=== PATIENT | female | born 1935 | race Caucasian/White ===

== ENCOUNTER 2018-03-18 22:48 | Emergency (ER) | payer MEDICARE ==
[~2018-03-18] VITALS: Ht 160 cm; Wt 100.0 kg
[~2018-03-18 22:48] MED LIST: ALD25T PO; ALIS150T; HYDR100T27 PO; HYDR50TA3 PO; METO50TA16 PO
[2018-03-18] MEDS ORDERED: LORazepam 2 mg/ml vial IV ONE (23:25)
[2018-03-18] MEDS ORDERED: ketorolac trometh. 30mg/ml inj. IV ONE (23:30)
[2018-03-19] MEDS ORDERED: fentaNYL/PF 50MCG/1 ML 2ML syringe IV ONE (01:25)
[2018-03-19] MEDS: labetalol 20mg/4ml (5mg/ml) syringe IV PRN ×2 (01:31→01:36)
[2018-03-19] MEDS ORDERED: hydrALAZINE 20mg/ml inj. IV ONE (02:05)
[2018-03-19] MEDS ORDERED: proCHLORperazine 10 MG/2 ml inj IV PRN (02:05)
[2018-03-19] MEDS ORDERED: metoclopramide 5 mg/ml inj IV ONE (02:05)
[2018-03-19] MEDS ORDERED: CYCL-1 PO (02:26)
[2018-03-19] MEDS ORDERED: METO-292 PO (02:26)
[2018-03-19 02:53] VITALS: BP 161/60
== END 2018-03-19 02:55 | disposition home or self-care (01) ==
LOC: ER 22:48
DX: R51 Headache (principal); I10 Essential (primary) hypertension; G89.29 Other chronic pain; Z90.49 Acquired absence of other specified parts of digestive tract; Z98.890 Other specified postprocedural states; Z85.9 Personal history of malignant neoplasm, unspecified; Z88.8 Allergy status to other drugs, medicaments and biological substances; Z79.899 Other long term (current) drug therapy
CPT/HCPCS: 70450; 96374; 96375; 99284; J0360; J1885; J2060; J2765; J3010; J0780; J3490

== ENCOUNTER 2018-05-05 16:23 | Inpatient (IN) | payer MEDICARE ==
[~2018-05-05] VITALS: Ht 175.3 cm; Wt 101.0 kg
[~2018-05-05 16:23] MED LIST changes: +CYCL-1 PO; +METO-292 PO
[2018-05-05] MEDS ORDERED: normal saline 1000ML IV soln IVB ONE (16:40)
[2018-05-05 17:10] LABS: BASOPHILS % (AUTO) 0.3 % (0-1); EOSINOPHILS # (AUTO) 0.1 X10'3 (0-0.9); EOSINOPHILS % (AUTO) 1.1 % (0-6); HEMATOCRIT 33.1 % (35.0-45.0); HEMOGLOBIN 11.1 g/dl (12.0-16.0); LYMPHOCYTES % (AUTO) 15.3 % (21-51); MEAN CORPUSCULAR HEMOGLOBIN 30.8 PG (27.0-31.0); MEAN CORPUSCULAR HGB CONC 33.5 % (33.0-36.5); MEAN CORPUSCULAR VOLUME 91.8 FL (78-98); MEAN PLATELET VOLUME 8.9 FL (7.4-10.4); MONOCYTES # (AUTO) 1.1 X10'3 (0-0.9); MONOCYTES % (AUTO) 8.2 % (2-12); NEUTROPHILS # (AUTO) 9.8 X10'3 (1.8-7.7); NEUTROPHILS % (AUTO) 75.1 % (42-75); PLATELET COUNT 163 X10'3 (140-440); WHITE BLOOD COUNT 13.1 X10'3 (4.5-11.0)
[2018-05-05 17:25] LABS: ALANINE AMINOTRANSFERASE 27 U/L (12-78); ALBUMIN 3.1 G/DL (3.4-5.0); ALBUMIN/GLOBULIN RATIO 1.1 (1.1-1.5); ALKALINE PHOSPHATASE 55 IU/L (46-116); ANION GAP 10 (8-16); ASPARTATE AMINO TRANSFERASE 138 U/L (10-37); BILIRUBIN,TOTAL 2.1 MG/DL (0.1-1.0); BLOOD UREA NITROGEN 25 MG/DL (7-18); BUN/CREATININE RATIO 18.8 (6.6-38.0); CALCIUM 7.9 MG/DL (8.5-10.1); CHLORIDE 101 MMOL/L (99-107); CREATININE 1.33 MG/DL (0.40-0.90); GLUCOSE 112 MG/DL (70-104); POTASSIUM 3.1 MMOL/L (3.5-5.1); SODIUM 134 MMOL/L (135-145); TOTAL CARBON DIOXIDE 22.8 MMOL/L (24-32); eGFR 38 ML/MIN
[2018-05-05 17:30] LABS: D-DIMER 10.07 MG/L FEU (0-0.50); INR 1.1 INR; PROTHROMBIN TIME 10.9 SECONDS (9.0-12.0)
[2018-05-05 18:52] LABS: CLARITY,URINE CLOUDY (Clear); COLOR,URINE YELLOW (Yellow); GLUCOSE, URINE NEGATIVE (Neg); KETONES,URINE TRACE mg/dl (Neg); LEUKOCYTE ESTERASE ,URINE NEGATIVE (Neg); NITRITES, URINE NEGATIVE (Neg); OCCULT BLOOD,URINE LARGE (Neg); PH,URINE 5.5 (4.8-8.0); PROTEIN,URINE 100 mg/dl (Neg)
[2018-05-05 18:59] LABS: UA COLLECTION TYPE STRAIGHT CATH
[2018-05-05 19:05] LABS: WBC,URINE NONE SEEN /HPF (0-4)
[2018-05-05 19:06] LABS: AMORPHOUS URATES 4+; BACTERIA,URINE FEW /HPF (Neg); MUCUS STRANDS NONE SEEN /LPF (Neg); SQUAMOUS EPITHELIAL CELL,UR NONE SEEN /LPF (FEW)
[2018-05-05 19:07] LABS: FINE GRANULAR CAST 0-3 /LPF (NEGATIVE)
[2018-05-05] MEDS ORDERED: acetaminophen 325mg tablet PO PRN ×2 (20:35)
[2018-05-05] MEDS ORDERED: potassium Cl 20 mEq SR tablet PO PRN (20:35)
[2018-05-05] MEDS ORDERED: magnesium 4gm in 100ml NS 100 ML IV PRN (20:35)
[2018-05-05] MEDS: K and/or MAG REPLACEMENT MC SCH (20:35)
[2018-05-05] MEDS ORDERED: mag hydrox/Alum hydrox/simeth 30ml oral suspension PO PRN (20:35)
[2018-05-05] MEDS ORDERED: potassium Cl 40MEQ/NS 500ml 500 ML IV PRN ×2 (20:35)
[2018-05-05] MEDS ORDERED: ondansetron/PF 4mg/2ml inj IV PRN (20:35)
[2018-05-05] MEDS ORDERED: HYDROcodone/acetaminophen 5mg/325mg tablet PO PRN (20:35)
[2018-05-05] MEDS ORDERED: magnesium Cl slow-release 64mg tablet PO PRN (20:35)
[2018-05-05] MEDS ORDERED: magnesium hydroxide 30ml (MOM) UD suspension PO PRN (20:35)
[2018-05-05] MEDS ORDERED: magnesium 1gm/100ml D5W IVPB 100 ML IV PRN (20:35)
[2018-05-05] MEDS ORDERED: iohexol 350MG/ML 100ml bottle IV ONE (20:43)
[2018-05-05] MEDS ORDERED: methylPREDNISolone sod succ 125mg/2ml vial IV ONE (20:55)
[2018-05-05] MEDS ORDERED: diphenhydrAMINE 50 mg/ml inj IV ONE (20:55)
[2018-05-05] MEDS: levoFLOXACIN-Levaquin 500mg/D5 100 ML IV SCH (21:47)
[2018-05-05] MEDS: normal saline 1000ml 1,000 ML IV SCH (21:47)
[2018-05-05 21:52] VITALS: BP 142/43
[2018-05-06] VITALS (7 sets, daily range): BP systolic 107–176; BP diastolic 38–56
[2018-05-06 06:26] LABS: BASOPHILS % (AUTO) 0.1 % (0-1); EOSINOPHILS # (AUTO) 0.1 X10'3 (0-0.9); HEMOGLOBIN 11.6 g/dl (12.0-16.0); LYMPHOCYTES # (AUTO) 0.7 X10'3 (1.1-4.8); LYMPHOCYTES % (AUTO) 8.4 % (21-51); MEAN CORPUSCULAR HEMOGLOBIN 31.3 PG (27.0-31.0); MEAN PLATELET VOLUME 9.6 FL (7.4-10.4); MONOCYTES # (AUTO) 0.1 X10'3 (0-0.9); MONOCYTES % (AUTO) 1.6 % (2-12); NEUTROPHILS # (AUTO) 7.5 X10'3 (1.8-7.7); NEUTROPHILS % (AUTO) 88.9 % (42-75); PLATELET COUNT 143 X10'3 (140-440); RED BLOOD COUNT 3.69 X10'6 (4.20-5.60); RED CELL DISTRIBUTION WIDTH 13.6 % (11.5-14.5); WHITE BLOOD COUNT 8.4 X10'3 (4.5-11.0)
[2018-05-06 06:43] LABS: ALBUMIN 2.9 G/DL (3.4-5.0); ANION GAP 12 (8-16); BLOOD UREA NITROGEN 18 MG/DL (7-18); BUN/CREATININE RATIO 18.9 (6.6-38.0); CALCIUM 6.8 MG/DL (8.5-10.1); CHLORIDE 103 MMOL/L (99-107); CREATININE 0.95 MG/DL (0.40-0.90); GLUCOSE 133 MG/DL (70-104); MAGNESIUM 2.2 MG/DL (1.5-2.4); POTASSIUM 3.4 MMOL/L (3.5-5.1); SODIUM 136 MMOL/L (135-145); TOTAL CARBON DIOXIDE 20.8 MMOL/L (24-32); eGFR 56 ML/MIN
[2018-05-06] MEDS: levoFLOXACIN-Levaquin 500mg/D5 100 ML IV SCH (07:24)
[2018-05-06] MEDS: potassium Cl 20 mEq SR tablet PO PRN ×3 (07:28→17:34)
[2018-05-06] MEDS: K and/or MAG REPLACEMENT MC SCH (08:41)
[2018-05-06] MEDS: normal saline 1000ml 1,000 ML IV SCH (09:24)
[2018-05-06] MEDS: lactobacillus rhamnosus 10,000 MMU CELLS/CAPSULE PO SCH (19:49)
[2018-05-06] MEDS: metoprolol tartrate 50mg tablet PO SCH (19:50)
[2018-05-06] MEDS: hydrALAZINE 25 MG tablet PO SCH (19:52)
[2018-05-07 03:00] VITALS: BP 170/44
[2018-05-07 06:14] LABS: BASOPHILS % (AUTO) 0.3 % (0-1); EOSINOPHILS # (AUTO) 0.1 X10'3 (0-0.9); EOSINOPHILS % (AUTO) 0.7 % (0-6); HEMOGLOBIN 11.7 g/dl (12.0-16.0); LYMPHOCYTES # (AUTO) 1.3 X10'3 (1.1-4.8); LYMPHOCYTES % (AUTO) 11.9 % (21-51); MEAN CORPUSCULAR HEMOGLOBIN 31.1 PG (27.0-31.0); MEAN CORPUSCULAR HGB CONC 33.4 % (33.0-36.5); MEAN CORPUSCULAR VOLUME 93.2 FL (78-98); MONOCYTES % (AUTO) 9.5 % (2-12); NEUTROPHILS # (AUTO) 8.5 X10'3 (1.8-7.7); NEUTROPHILS % (AUTO) 77.6 % (42-75); PLATELET COUNT 152 X10'3 (140-440); RED BLOOD COUNT 3.75 X10'6 (4.20-5.60); RED CELL DISTRIBUTION WIDTH 13.9 % (11.5-14.5)
[2018-05-07 06:25] LABS: ALBUMIN 2.8 G/DL (3.4-5.0); ANION GAP 8 (8-16); BLOOD UREA NITROGEN 20 MG/DL (7-18); BUN/CREATININE RATIO 19.4 (6.6-38.0); CALCIUM 8.2 MG/DL (8.5-10.1); CHLORIDE 103 MMOL/L (99-107); CREATININE 1.03 MG/DL (0.40-0.90); GLUCOSE 107 MG/DL (70-104); MAGNESIUM 1.9 MG/DL (1.5-2.4); SODIUM 134 MMOL/L (135-145); TOTAL CARBON DIOXIDE 23.5 MMOL/L (24-32); eGFR 51 ML/MIN
[2018-05-07 07:00] VITALS: BP 132/51
[2018-05-07] MEDS: K and/or MAG REPLACEMENT MC SCH (08:00)
[2018-05-07] MEDS: metoprolol tartrate 50mg tablet PO SCH ×2 (08:00→20:15)
[2018-05-07] MEDS: lactobacillus rhamnosus 10,000 MMU CELLS/CAPSULE PO SCH ×2 (08:48→20:15)
[2018-05-07] MEDS: hydrALAZINE 25 MG tablet PO SCH ×2 (08:48→20:16)
[2018-05-07] MEDS: levoFLOXACIN-Levaquin 500mg/D5 100 ML IV SCH (08:48)
[2018-05-07 11:00] VITALS: BP 127/57
[2018-05-07] MEDS ORDERED: levoFLOXACIN 500mg tablet PO ONE (12:25)
[2018-05-07] MEDS: normal saline 1000ml 1,000 ML IV SCH (12:31)
[2018-05-07] MEDS ORDERED: traMADol 50MG tablet PO PRN (14:00)
[2018-05-07 15:00] VITALS: BP 138/55
[2018-05-07 18:00] VITALS: BP 167/52
[2018-05-07 22:00] VITALS: BP 157/45
[2018-05-08 02:00] VITALS: BP 125/47
[2018-05-08 06:00] VITALS: BP 178/53
[2018-05-08 06:49] LABS: BASOPHILS % (AUTO) 0.2 % (0-1); EOSINOPHILS # (AUTO) 0.1 X10'3 (0-0.9); HEMATOCRIT 33.7 % (35.0-45.0); HEMOGLOBIN 11.3 g/dl (12.0-16.0); LYMPHOCYTES # (AUTO) 1.4 X10'3 (1.1-4.8); LYMPHOCYTES % (AUTO) 16.4 % (21-51); MEAN CORPUSCULAR HEMOGLOBIN 31.1 PG (27.0-31.0); MEAN CORPUSCULAR HGB CONC 33.5 % (33.0-36.5); MEAN CORPUSCULAR VOLUME 92.9 FL (78-98); MEAN PLATELET VOLUME 9.7 FL (7.4-10.4); MONOCYTES # (AUTO) 0.9 X10'3 (0-0.9); MONOCYTES % (AUTO) 10.6 % (2-12); NEUTROPHILS # (AUTO) 6.1 X10'3 (1.8-7.7); NEUTROPHILS % (AUTO) 71.8 % (42-75); PLATELET COUNT 152 X10'3 (140-440); RED BLOOD COUNT 3.62 X10'6 (4.20-5.60); RED CELL DISTRIBUTION WIDTH 13.6 % (11.5-14.5); WHITE BLOOD COUNT 8.5 X10'3 (4.5-11.0)
[2018-05-08] MEDS: hydrALAZINE 25 MG tablet PO SCH (07:46)
[2018-05-08] MEDS: metoprolol tartrate 50mg tablet PO SCH (07:46)
[2018-05-08] MEDS: lactobacillus rhamnosus 10,000 MMU CELLS/CAPSULE PO SCH (07:47)
[2018-05-08 07:49] LABS: ALBUMIN 2.6 G/DL (3.4-5.0); ANION GAP 10 (8-16); BLOOD UREA NITROGEN 14 MG/DL (7-18); BUN/CREATININE RATIO 14.4 (6.6-38.0); CALCIUM 8.1 MG/DL (8.5-10.1); CHLORIDE 102 MMOL/L (99-107); CREATININE 0.97 MG/DL (0.40-0.90); GLUCOSE 97 MG/DL (70-104); MAGNESIUM 1.9 MG/DL (1.5-2.4); POTASSIUM 3.7 MMOL/L (3.5-5.1); SODIUM 135 MMOL/L (135-145); eGFR 55 ML/MIN
[2018-05-08] MEDS: K and/or MAG REPLACEMENT MC SCH (08:00)
[2018-05-08] MEDS: normal saline 1000ml 1,000 ML IV SCH (08:31)
[2018-05-08 11:00] VITALS: BP 117/60
[2018-05-08] MEDS ORDERED: levoFLOXACIN 500mg tablet PO SCH (11:00)
[2018-05-08 14:49] LABS: ALANINE AMINOTRANSFERASE 39 U/L (12-78); ALBUMIN 2.6 G/DL (3.4-5.0); ALBUMIN/GLOBULIN RATIO 0.8 (1.1-1.5); ALKALINE PHOSPHATASE 55 IU/L (46-116); ASPARTATE AMINO TRANSFERASE 150 U/L (10-37); BILIRUBIN,DIRECT 0.3 MG/DL (0-0.3); BILIRUBIN,TOTAL 1.5 MG/DL (0.1-1.0); TOTAL PROTEIN 5.7 G/DL (6.4-8.2)
== END 2018-05-08 15:32 | DRG 872 ==
LOC: ER 16:23 → ED HOLD 20:31 → PCU 3S 21:45
PROVIDERS: ADMIT Hospitalist; ATTEND Internal Medicine
PROC: B32T1ZZ Computerized Tomography (CT Scan) of Left Pulmonary Artery using Low Osmolar Contrast (ICD-10-PCS; principal; 2018-05-05)
PROC: B3201ZZ Computerized Tomography (CT Scan) of Thoracic Aorta using Low Osmolar Contrast (ICD-10-PCS; 2018-05-05)
PROC: B32S1ZZ Computerized Tomography (CT Scan) of Right Pulmonary Artery using Low Osmolar Contrast (ICD-10-PCS; 2018-05-05)
DX: A41.9 Sepsis, unspecified organism (principal); S22.43XA Multiple fractures of ribs, bilateral, initial encounter for closed fracture; W19.XXXA Unspecified fall, initial encounter; Y93.89 Activity, other specified; N39.0 Urinary tract infection, site not specified; N17.9 Acute kidney failure, unspecified; E87.1 Hypo-osmolality and hyponatremia; E46 Unspecified protein-calorie malnutrition; K86.1 Other chronic pancreatitis; R17 Unspecified jaundice; E87.6 Hypokalemia; G89.29 Other chronic pain; R55 Syncope and collapse; R74.8 Abnormal levels of other serum enzymes; D64.9 Anemia, unspecified; F03.90 Unspecified dementia, unspecified severity, without behavioral disturbance, psychotic disturbance, mood disturbance, and anxiety; G47.30 Sleep apnea, unspecified; I12.9 Hypertensive chronic kidney disease with stage 1 through stage 4 chronic kidney disease, or unspecified chronic kidney disease; N18.9 Chronic kidney disease, unspecified; R29.6 Repeated falls; Z90.710 Acquired absence of both cervix and uterus; Z90.49 Acquired absence of other specified parts of digestive tract; Z88.8 Allergy status to other drugs, medicaments and biological substances; Z91.041 Radiographic dye allergy status; Z79.899 Other long term (current) drug therapy; Z85.42 Personal history of malignant neoplasm of other parts of uterus; Z68.32 Body mass index [BMI] 32.0-32.9, adult; Y92.89 Other specified places as the place of occurrence of the external cause; Y99.8 Other external cause status
CPT/HCPCS: 36415; 70450; 71045; 71275; 74177; 80048; 80053; 80076; 81001; 82553; 82948; 83605; 83735; 83880; 84145; 84484; 85025; 85379; 85610; 87040; 87070; 93005; 93306; 96360; 97110; 97116; 97161; 99285; A4353; J1200; J1956; J2930; J7030; Q9967